=== PATIENT | male | born 1970 | race Caucasian/White ===

== ENCOUNTER 2019-01-12 16:35 | Inpatient (IN) | payer OTHER ==
[2019-01-12 18:54] VITALS: BMI 24.7
--- NOTE | 2019-01-12 19:27 | HP ---
COWS - Scale Resting Pulse: 1= [place] 81-100 Sweatin= Chills/Flushing Restless Observation: 1= Difficult to Sit Still Pupil Size: 1= Pupils >than Normal Bone or Joint Aches: 2= Severe Diffuse Aches Runny Nose/ Eye Tearin= Runny Nose/Eyes GI Upset > 30mins: 2= Nausea/Diarrhea Tremor Observation: 2= Slight Tremor Visible Yawning Observation: 0= None Anxiety or Irritability: 2=Irritable/Anxious Goose Flesh Skin: 3=Piloerection COWS Score: 17 CIWA Score - Admission Criteria OASAS Guidelines: Admission for Medically Managed Detox: Requires at least one of the followin. CIWA greater than 12 2. Seizures within the past 24 hours 3. Delirium tremens within the past 24 hours 4. Hallucinations within the past 24 hours 5. Acute intervention needed for co occurring medical disorder 6. Acute intervention needed for co occurring psychiatric disorder 7. Severe withdrawal that cannot be handled at a lower level of care (continued vomiting, continued diarrhea, abnormal vital signs) requiring intravenous medication and/or fluids 8. Admission ROS [facility] Chief Complaint: WITHDRAWAL SYMPTOMS Allergies/Adverse Reactions: Allergies Allergy/AdvReac Type Severity Reaction Status Date / Time No Known Allergies Allergy Verified 01/12/19 19:23 History of Present Illness: 48 Y.O. MAN WITH A TWO YEAR HISTORY OF OPIOID DEPENDENCE IS HERE SEEKING HIS FIRST ADMISSION EVER TO DETOX. HE WAS REFERRED FROM [facility]. Exam Limitations: No Limitations - Ebola screening Have you traveled outside of the country in the last 21 days: No (N) Have you had contact with anyone from an Ebola affected area: No Have you been sick,other than usual withdrawal symptoms: No Do you have a fever: No - Review of Systems Constitutional: Chills, Diaphoresis, Loss of Appetite, Changes in sleep, Unexplained wgt Loss EENT: reports: Tearing, Nose Congestion Respiratory: reports: No Symptoms reported Cardiac: reports: Lightheadedness GI: reports: Nausea : reports: No Symptoms Reported Musculoskeletal: reports: Back Pain Integumentary: reports: No Symptoms Reported Neuro: reports: No Symptoms reported Endocrine: reports: No Symptoms Reported Hematology: reports: No Symptoms Reported Psychiatric: reports: Anxious, Depressed Other Systems: Reviewed and Negative Patient History - Patient Medical History Hx Anemia: No Hx Asthma: No Hx Chronic Obstructive Pulmonary Disease (COPD): No Hx Cancer: No Hx Cardiac Disorders: Yes (CAD-NOT TAKING MEDS ) Hx Congestive Heart Failure: No Hx Hypertension: No Hx Hypercholesterolemia: Yes (NOT TAKING MEDS ) Hx Pacemaker: No HX Cerebrovascular Accident: No Hx Seizures: No Hx Dementia: No Hx Diabetes: No Hx Gastrointestinal Disorders: No Hx Liver Disease: No Hx Genitourinary Disorders: No Hx Sexually Transmitted Disorders: No Hx Renal Disease (ESRD): No Hx Thyroid Disease: No Hx Human Immunodeficiency Virus (HIV): No Hx Hepatitis C: No Hx Depression: Yes Hx Suicide Attempt: No (IDEATION BUT DENIES ATTEMPTS) Hx Bipolar Disorder: No Hx Schizophrenia: No - Patient Surgical History Hx Orthopedic Surgery: Yes (LEFT LEG FX REPAIR ) Anesthesia Reaction: No - PPD History Previous Implant?: Yes Documented Results: Negative w/o proof PPD to be Administered?: Yes - Reproductive History Patient is a Female of Child Bearing Age (11 -55 yrs old): No - Smoking Cessation Smoking history: Current every day smoker Have you smoked in the past 12 months: Yes Aproximately how many cigarettes per day: 20 Initiated information on smoking cessation: Yes 'Breaking Loose' booklet given: 01/12/19 - Substance & Tx. History Hx Alcohol Use: No Hx Substance Use: Yes Substance Use Type: Heroin Hx Substance Use Treatment: No - Substances Abused Heroin Route: Inhalation Frequency: Daily Amount used: 6 BAGS Age of first use: 47 Date of Last Use: 01/11/19 Family Disease History - Family Disease History Family History: Denies Admission Physical Exam BHS - Vital Signs Vital Signs: Vital Signs - 24 hr 01/12/19 18:52 Temperature 97.8 F Pulse Rate 91 H Respiratory 18 Rate Blood Pressure 133/79 - Physical General Appearance: Yes: Tremorous, Irritable, Sweating, Anxious HEENTM: Yes: Hearing grossly Normal, Normocephalic, Normal Voice Respiratory: Yes: Chest Non-Tender, Lungs Clear, Normal Breath Sounds, No Respiratory Distress, No Accessory Muscle Use Neck: Yes: Within Normal Limits, No masses,lesions,Nodules Breast: Yes: Breast Exam Deferred Cardiology: Yes: Regular Rhythm, Regular Rate Abdominal: Yes: Normal Bowel Sounds, Non Tender, Flat Genitourinary: Yes: Other (NO COMPLAINTS REPORTED) Back: Yes: Normal Inspection Musculoskeletal: Yes: full range of Motion, Gait Steady, Pelvis Stable Extremities: Yes: Normal Capillary Refill, Normal Inspection, Non-Tender Neurological: Yes: Alert, Normal Mood/Affect, Normal Response Integumentary: Yes: Normal Color, Dry, Warm Lymphatic: Yes: Within Normal Limits - Diagnostic (1) Uncomplicated opioid dependence Current Visit: Yes Status: Chronic (2) CAD (coronary artery disease) Current Visit: Yes Status: Chronic (3) Hyperlipidemia Current Visit: Yes Status: Chronic (4) Nicotine dependence Current Visit: Yes Status: Chronic Cleared for Admission [facility] - Detox or Rehab [facility] Level of Care: Medically Managed Detox Regimen/Protocol: Methadone [facility] Breath Alcohol Content Breath Alcohol Content: 0 Urine Drug Screen - Results Drug Screen Negative: No Urine Drug Screen Results: THC-Marijuana, OPI-Opiates, MTD-Methadone, FEN- Fentanyl Inpatient Rehab Admission - Rehab Decision to Admit Inpatient rehab admission?: No
[2019-01-12] MEDS ORDERED: MAG HYDROX/AL HYDROX/SIMETH 30 ML UNIT-DOSE CUP PO PRN (19:38)
[2019-01-12] MEDS ORDERED: NICOTINE POLACRILEX 2 MG GUM BUC PRN (19:38)
[2019-01-12] MEDS ORDERED: METHADONE HCL 10 MG TABLET (FOR DETOX USE ONLY) PO ONE ×2 (19:38→23:00)
[2019-01-12] MEDS ORDERED: BISMUTH SUBSALICYLATE 524 MG/30 ML UD PO PRN (19:38)
[2019-01-12] MEDS ORDERED: ACETAMINOPHEN 325 MG TABLET (FP) PO PRN ×2 (19:38)
[2019-01-12] MEDS ORDERED: NALOXONE HCL 0.4 MG/ML VIAL IVPUSH PRN (19:38)
[2019-01-12] MEDS ORDERED: MAGNESIUM CITRATE 300 ML BOTTLE PO PRN (19:38)
[2019-01-12] MEDS ORDERED: MAGNESIUM HYDROX 2400MG/30ML ORAL SUSPENSION 30 ML CUP PO PRN (19:38)
[2019-01-12] MEDS ORDERED: IBUPROFEN 400 MG TABLET (FP) PO PRN (19:38)
[2019-01-12] MEDS ORDERED: MENTHOL/PHENOL 1 EACH UD MM PRN (19:38)
[2019-01-12] MEDS: THIAMINE HCL 100 MG TABLET (FP) PO SCH (22:16)
[2019-01-12] MEDS: MELATONIN 5 MG TABLETS PO PRN (22:20)
--- NOTE | 2019-01-13 09:32 | EKG ---
Test Reason : Blood Pressure : / mmHG Vent. Rate : 076 BPM Atrial Rate : 076 BPM P-R Int : 142 ms QRS Dur : 094 ms QT Int : 414 ms P-R-T Axes : 060 072 074 degrees QTc Int : 465 ms NORMAL SINUS RHYTHM POSSIBLE LEFT ATRIAL ENLARGEMENT BORDERLINE ECG NO PREVIOUS ECGS AVAILABLE Confirmed by INGRIS RAMIREZ, SABRINA ([id number]) on 01/13/2019 9:31:37 AM Referred By: Confirmed By:SABRINA AMADO MD
[2019-01-13] MEDS ORDERED: METHADONE HCL 10 MG TABLET (FOR DETOX USE ONLY) PO ONE (10:00)
[2019-01-13] MEDS: PRENATAL VITAMINS W/ FOLIC ACID TABLET (FP) PO SCH (10:15)
[2019-01-13] MEDS: NICOTINE 21 MG/24 HOURS TOPICAL PATCH TD SCH (10:15)
[2019-01-13] MEDS: hydrOXYzine PAMOATE 50 MG CAPSULE (FP) PO PRN ×2 (10:17→20:29)
[2019-01-13] MEDS: METHOCARBAMOL 500 MG TABLET PO PRN ×2 (10:17→22:17)
--- NOTE | 2019-01-13 10:45 | PN ---
BHS COWS - Scale Resting Pulse: 1= [place] 81-100 Sweatin= Chills/Flushing Restless Observation: 0= Sits Still Pupil Size: 0= Normal to Room Light Bone or Joint Aches: 1= Mild Discomfort Runny Nose/ Eye Tearin= Nasal Congestion GI Upset > 30mins: 2= Nausea/Diarrhea Tremor Observation of Outstretched Hands: 2= Slight Tremor Visible Yawning Observation: 2= >3x During Session Anxiety or Irritability: 2=Irritable/Anxious Goose Flesh Skin: 0=Smooth Skin COWS Score: 12 BHS Progress Note (SOAP) Subjective: feeling restlessness trouble sleep at night anxious about withdrawal sx emotional assurance given Objective: 01/13/19 10:45 Vital Signs Temperature 98.6 F 01/13/19 09:33 Pulse Rate 97 H 01/13/19 09:33 Respiratory Rate 18 01/13/19 09:33 Blood Pressure 115/71 01/13/19 09:33 O2 Sat by Pulse Oximetry (%) lab pending Assessment: 01/13/19 10:46 withdrawal sx Plan: continue detox
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
[2019-01-13 12:35] LABS: HEMATOCRIT 43.8 % (35.4-49); HEMOGLOBIN 14.5 GM/dL (11.7-16.9); MCH 29.3 pg (25.7-33.7); MCHC 33.2 g/dl (32.0-35.9); MEAN CELL VOLUME 88.4 fl (80-96); MEAN PLT VOLUME 9.1 fl (7.5-11.1); PLATELET COUNT 201 K/MM3 (134-434); RBC 4.96 M/mm3 (4.00-5.60); RDW 14.9 % (11.9-15.9)
[2019-01-13 13:15] LABS: ALBUMIN 3.5 g/dl (3.4-5.0); ALK PHOS 77 U/L (45-117); ANION GAP 6 MMOL/L (8-16); BILIRUBIN,TOTAL 0.8 mg/dL (0.2-1); BLOOD UREA NITROGEN 13 mg/dL (7-18); CALCIUM 8.8 mg/dL (8.5-10.1); CHLORIDE 105 mmol/L (98-107); CO2 28 mmol/L (21-32); CREATININE 0.7 mg/dL (0.55-1.3); GLUCOSE,RANDOM 84 mg/dL (74-106); POTASSIUM 4.7 mmol/L (3.5-5.1); SGOT/AST 12 U/L (15-37); SGPT/ALT 22 U/L (13-61); SODIUM 139 mmol/L (136-145); TOT PROT 6.7 g/dl (6.4-8.2)
[2019-01-13] MEDS: clonazePAM 0.5 MG TABLET PO PRN (20:29)
[2019-01-13] MEDS: cloNIDine HCL 0.1 MG TABLET PO PRN (22:16)
[2019-01-13] MEDS: THIAMINE HCL 100 MG TABLET (FP) PO SCH (22:16)
[2019-01-13] MEDS: MELATONIN 5 MG TABLETS PO PRN (22:17)
[2019-01-14] MEDS ORDERED: METHADONE HCL 10 MG TABLET (FOR DETOX USE ONLY) PO ONE (10:00)
[2019-01-14] MEDS: PRENATAL VITAMINS W/ FOLIC ACID TABLET (FP) PO SCH (10:06)
[2019-01-14] MEDS: cloNIDine HCL 0.1 MG TABLET PO PRN (10:06)
[2019-01-14] MEDS: METHOCARBAMOL 500 MG TABLET PO PRN (10:06)
[2019-01-14] MEDS: NICOTINE 21 MG/24 HOURS TOPICAL PATCH TD SCH (10:07)
--- NOTE | 2019-01-14 15:42 | PN ---
BHS COWS - Scale Resting Pulse: 0= VA 80 or Below Sweatin= Chills/Flushing Restless Observation: 0= Sits Still Pupil Size: 0= Normal to Room Light Bone or Joint Aches: 1= Mild Discomfort Runny Nose/ Eye Tearin= Nasal Congestion GI Upset > 30mins: 1= Stomach Cramp Tremor Observation of Outstretched Hands: 1= Tremor [place], Not Seen Yawning Observation: 1= 1-2x During Session Anxiety or Irritability: 1=Feels Anxious/Irritable Goose Flesh Skin: 0=Smooth Skin COWS Score: 7 [facility] Progress Note (SOAP) Subjective: doing ok today low energy poor concentration Objective: 01/14/19 15:43 Vital Signs Temperature 96.6 F L 01/14/19 14:45 Pulse Rate 70 01/14/19 14:45 Respiratory Rate 18 01/14/19 14:45 Blood Pressure 134/77 01/14/19 14:45 O2 Sat by Pulse Oximetry (%) Laboratory Last Values WBC 8.0 K/mm3 (4.0-10.0) 01/13/19 07:30 RBC 4.96 M/mm3 (4.00-5.60) 01/13/19 07:30 Hgb 14.5 GM/dL (11.7-16.9) 01/13/19 07:30 Hct 43.8 % (35.4-49) 01/13/19 07:30 MCV 88.4 fl (80-96) 01/13/19 07:30 MCH 29.3 pg (25.7-33.7) 01/13/19 07:30 MCHC 33.2 g/dl (32.0-35.9) 01/13/19 07:30 RDW 14.9 % (11.9-15.9) 01/13/19 07:30 Plt Count 201 K/MM3 (134-434) 01/13/19 07:30 MPV 9.1 fl (7.5-11.1) 01/13/19 07:30 Sodium 139 mmol/L (136-145) 01/13/19 07:30 Potassium 4.7 mmol/L (3.5-5.1) 01/13/19 07:30 Chloride 105 mmol/L (98-107) 01/13/19 07:30 Carbon Dioxide 28 mmol/L (21-32) 01/13/19 07:30 Anion Gap 6 MMOL/L (8-16) L 01/13/19 07:30 BUN 13 mg/dL (7-18) 01/13/19 07:30 Creatinine 0.7 mg/dL (0.55-1.3) 01/13/19 07:30 Creat Clearance w eGFR 120.37 (>60) 01/13/19 07:30 Random Glucose 84 mg/dL (74-106) 01/13/19 07:30 Calcium 8.8 mg/dL (8.5-10.1) 01/13/19 07:30 Total Bilirubin 0.8 mg/dL (0.2-1) 01/13/19 07:30 AST 12 U/L (15-37) L 01/13/19 07:30 ALT 22 U/L (13-61) 01/13/19 07:30 Alkaline Phosphatase 77 U/L (45-117) 01/13/19 07:30 Total Protein 6.7 g/dl (6.4-8.2) 01/13/19 07:30 Albumin 3.5 g/dl (3.4-5.0) 01/13/19 07:30 RPR Titer Nonreactive (NONREACTIVE) 01/13/19 07:30 lab noted Assessment: 01/14/19 15:44 withdrawal sx Plan: continue detox
[2019-01-14] MEDS: clonazePAM 0.5 MG TABLET PO PRN (19:52)
[2019-01-14] MEDS: hydrOXYzine PAMOATE 50 MG CAPSULE (FP) PO PRN (19:52)
[2019-01-14] MEDS: MELATONIN 5 MG TABLETS PO PRN (22:11)
[2019-01-14] MEDS: THIAMINE HCL 100 MG TABLET (FP) PO SCH (22:11)
[2019-01-15] MEDS ORDERED: METHADONE HCL 10 MG TABLET (FOR DETOX USE ONLY) PO ONE (10:00)
[2019-01-15] MEDS ORDERED: cloNIDine HCL 0.1 MG TABLET PO ONE (10:01)
[2019-01-15] MEDS: PRENATAL VITAMINS W/ FOLIC ACID TABLET (FP) PO SCH (10:09)
[2019-01-15] MEDS: NICOTINE 21 MG/24 HOURS TOPICAL PATCH TD SCH (10:09)
[2019-01-15] MEDS: clonazePAM 0.5 MG TABLET PO PRN (10:09)
[2019-01-15] MEDS: METHOCARBAMOL 500 MG TABLET PO PRN (10:09)
--- NOTE | 2019-01-15 14:58 | PN ---
BHS Progress Note (SOAP) Subjective: Anxious. Objective: PATIENT A & O X 3, OBSERVED AMBULATING ON UNIT. IN NO ACUTE DISTRESS. 01/15/19 14:56 Vital Signs Temperature 97.8 F 01/15/19 13:00 Pulse Rate 72 01/15/19 13:00 Respiratory Rate 18 01/15/19 13:00 Blood Pressure 112/86 01/15/19 13:00 O2 Sat by Pulse Oximetry (%) Laboratory Tests 01/13/19 01/13/19 01/13/19 07:30 07:30 07:30 WBC 8.0 RBC 4.96 Hgb 14.5 Hct 43.8 MCV 88.4 MCH 29.3 MCHC 33.2 RDW 14.9 Plt Count 201 MPV 9.1 Sodium 139 Potassium 4.7 Chloride 105 Carbon Dioxide 28 Anion Gap 6 L BUN 13 Creatinine 0.7 Creat Clearance w eGFR 120.37 Random Glucose 84 Calcium 8.8 Total Bilirubin 0.8 AST 12 L ALT 22 Alkaline Phosphatase 77 Total Protein 6.7 Albumin 3.5 RPR Titer Nonreactive LABS NOTED. Assessment: 01/15/19 14:56 WITHDRAWAL SYMPTOMS. Plan: CONTINUE DETOX.
[2019-01-15 17:40] VITALS: BP 119/87; PULSE 89; TEMP 98.8
--- NOTE | 2019-01-15 21:08 | DS ---
[facility] Detox Discharge Summary Admission Date: 01/12/19 Discharge Date: 01/15/19 - History Present History: Cannabis Dependence, Opioid Dependence Additional Comments: Admitted for opioid withdrawal symptoms. Pertinent Past History: Two year hx opiate use. This is the first admission for opiate use disorder. Denies other significant PMH. - Physical Exam Results Vital Signs: Vital Signs Temperature 98.8 F 01/15/19 17:38 Pulse Rate 89 01/15/19 17:38 Respiratory Rate 18 01/15/19 17:38 Blood Pressure 119/87 01/15/19 17:38 O2 Sat by Pulse Oximetry (%) Pertinent Admission Physical Exam Findings: Admitted for opiate use disorder. Laboratory Last Values WBC 8.0 K/mm3 (4.0-10.0) 01/13/19 07:30 RBC 4.96 M/mm3 (4.00-5.60) 01/13/19 07:30 Hgb 14.5 GM/dL (11.7-16.9) 01/13/19 07:30 Hct 43.8 % (35.4-49) 01/13/19 07:30 MCV 88.4 fl (80-96) 01/13/19 07:30 MCH 29.3 pg (25.7-33.7) 01/13/19 07:30 MCHC 33.2 g/dl (32.0-35.9) 01/13/19 07:30 RDW 14.9 % (11.9-15.9) 01/13/19 07:30 Plt Count 201 K/MM3 (134-434) 01/13/19 07:30 MPV 9.1 fl (7.5-11.1) 01/13/19 07:30 Sodium 139 mmol/L (136-145) 01/13/19 07:30 Potassium 4.7 mmol/L (3.5-5.1) 01/13/19 07:30 Chloride 105 mmol/L (98-107) 01/13/19 07:30 Carbon Dioxide 28 mmol/L (21-32) 01/13/19 07:30 Anion Gap 6 MMOL/L (8-16) L 01/13/19 07:30 BUN 13 mg/dL (7-18) 01/13/19 07:30 Creatinine 0.7 mg/dL (0.55-1.3) 01/13/19 07:30 Creat Clearance w eGFR 120.37 (>60) 01/13/19 07:30 Random Glucose 84 mg/dL (74-106) 01/13/19 07:30 Calcium 8.8 mg/dL (8.5-10.1) 01/13/19 07:30 Total Bilirubin 0.8 mg/dL (0.2-1) 01/13/19 07:30 AST 12 U/L (15-37) L 01/13/19 07:30 ALT 22 U/L (13-61) 01/13/19 07:30 Alkaline Phosphatase 77 U/L (45-117) 01/13/19 07:30 Total Protein 6.7 g/dl (6.4-8.2) 01/13/19 07:30 Albumin 3.5 g/dl (3.4-5.0) 01/13/19 07:30 RPR Titer Nonreactive (NONREACTIVE) 01/13/19 07:30 Labs reviewed. - Treatment Hospital Course: Detox Protocol Followed (Tolerated detox protocol, but did not complete), Responded well, Discharged Condition Good (Alert and oriented. Steady gait.) - Medication Discharge Medications: Ambulatory Orders NK [No Known Home Medication] 01/12/19 - Diagnosis (1) Nicotine dependence Status: Chronic Qualifiers: Nicotine product type: cigarettes Substance use status: uncomplicated Qualified Code(s): F17.210 - Nicotine dependence, cigarettes, uncomplicated (2) Uncomplicated opioid dependence Status: Acute - AMA Did Patient Leave Against Medical Advice: Yes (States has a narcan kit at home. States aware of overdose risks. )
[2019-01-16] MEDS ORDERED: METHADONE HCL 5 MG TABLET (FOR DETOX USE ONLY) PO ONE (06:00)
== END 2019-01-15 20:00 | disposition left against medical advice (07) | DRG 770 ==
LOC: YASAS 16:35 → Y3N 21:35
PROVIDERS: ADMIT Surgery; ATTEND Surgery
PROC: HZ2ZZZZ Detoxification Services for Substance Abuse Treatment (ICD-10-PCS; principal; 2019-01-12)
DX: F11.23 Opioid dependence with withdrawal (principal); F12.20 Cannabis dependence, uncomplicated; F17.210 Nicotine dependence, cigarettes, uncomplicated; F19.24 Other psychoactive substance dependence with psychoactive substance-induced mood disorder; F32.9 Major depressive disorder, single episode, unspecified; I25.10 Atherosclerotic heart disease of native coronary artery without angina pectoris; E78.00 Pure hypercholesterolemia, unspecified
CPT/HCPCS: 36415; 80053; 85027; 86593; 93005; 93010; J0735